=== PATIENT | female | born 2000 | race Hispanic/Latino ===

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

== ENCOUNTER 2022-11-11 19:13 | Emergency (ER) | payer OTHER ==
[2022-11-11] MEDS ORDERED: Ketorolac Tromethamine 30 MG/ML VIAL ONE (20:13)
[2022-11-11] MEDS ORDERED: Ondansetron ODT 4 MG TAB ONE (20:13)
[2022-11-11 20:28] LABS: SARS-CoV-2 NAA Rapid Test Not Detected (NotDetected)
== END 2022-11-11 20:40 | disposition home or self-care (01) ==
LOC: ERS 19:13
DX: R11.2 Nausea with vomiting, unspecified (principal); B34.9 Viral infection, unspecified; Z20.822 Contact with and (suspected) exposure to COVID-19
CPT/HCPCS: 96372; 99284; J1885; Q0162

== ENCOUNTER 2023-08-24 21:59 | Emergency (ER) | payer OTHER, SELFPAY | END 2023-08-24 23:19 | disposition home or self-care (01) | LOC: ERS 21:59 | DX: M25.532 Pain in left wrist (principal); X50.3XXA Overexertion from repetitive movements, initial encounter; Y93.89 Activity, other specified; Y92.69 Other specified industrial and construction area as the place of occurrence of the external cause; Z55.0 Illiteracy and low-level literacy ==

== ENCOUNTER 2024-04-16 23:59 | Emergency (ER) | payer SELFPAY ==
[2024-04-17 00:29] LABS: #Basophils 0.05 10x3/uL (0.0-0.2); #Eosinophils Less than 0.03 10x3/uL (0.0-0.7); %Basophils 0.4 % (0.0-1.0); %Eosinophils 0.1 % (0.0-10.0); %Lymphocytes 14.1 % (21.0-51.0); %Monocytes 3.9 % (0.0-10.0); %Neutrophils 81.1 % (42.0-75.0); Hematocrit 43.1 % (36.0-47.0); Hemoglobin 14.6 g/dL (12.0-16.0); Mean Corpuscular HGB CONC 33.9 g/dL (32.0-36.0); Mean Corpuscular Hemoglobin 31.2 pg (27.0-31.0); Mean Corpuscular Volume 92.1 fL (78.0-98.0); Mean Platelet Volume 9.8 fL (7.4-10.4); Platelet Count 270 10x3/uL (130-400); RBC Distribution Width 12.4 % (11.5-14.5); Red Blood Cell (RBC) Count 4.68 mill/uL (4.20-5.40)
[2024-04-17 01:07] LABS: ALT (SGPT) 29 U/L (Less than 34); Albumin 4.6 g/dL (3.1-4.5); Alkaline Phosphatase 86 U/L (40-110); Anion Gap 14 mmol/L (10-20); BUN (Urea Nitrogen) 13 mg/dL (7.0-18.7); Bilirubin, Total 0.4 mg/dL (0.3-1.2); Calc. Creatinine Clearance 0 mL/min (70-130); Calcium 9.6 mg/dL (7.8-10.44); Carbon Dioxide 23 mmol/L (22-29); Chloride 105 mmol/L (98-107); Estimated GFR 131; Globulin 3.3 g/dL (2.4-3.5); Glucose 110 mg/dL (70-105); Lipase 15 U/L (8-78); Potassium 3.6 mmol/L (3.5-5.1); Protein, Total 7.9 g/dL (6.0-8.3); Sodium 138 mmol/L (136-145)
[2024-04-17 01:57] LABS: Pregnancy Test - Urine (BHCG) Negative (Negative); Pregu Control Bar Appear? YES (CONTROL BAR)
[2024-04-17 01:58] LABS: Pregu Control Background? CLEAR/WHITE (CLR/WHITE)
[2024-04-17 02:01] LABS: Specific Gravity 1.031 (1.002-1.036)
[2024-04-17 02:02] LABS: Bacteria/HPF 2+ HPF (None Seen); Bilirubin Negative (Negative); Blood, Urine 1+ (Negative); CAUTI Indications for Culture Pelvic or flank pain; Clarity Turbid (Clear); Glucose, Urine (Dipstick) Normal (Negative); Ketone, Urine 20 mg/dL (Negative); Leukocyte Negative Leu/uL (Negative); Nitrite Negative (Negative); Protein, Urine (Dipstick) 30 mg/dL (Neg-Trace); RBC/HPF 21-50 HPF (0-3); Specific Gravity, Urine 1.031 (1.002-1.036)
[2024-04-17 02:03] LABS: Urine Culture Reflex No No
[2024-04-17] MEDS ORDERED: Famotidine 20 MG TAB ONE (02:20)
[2024-04-17] MEDS ORDERED: Dicyclomine 20 MG TAB ONE (02:20)
[2024-04-17] MEDS ORDERED: Ondansetron ODT 4 MG TAB ONE (02:21)
[2024-04-17 03:47] LABS: AST (SGOT) 31 U/L (11-34)
== END 2024-04-17 03:11 | disposition home or self-care (01) ==
LOC: ERS 23:59
DX: R10.13 Epigastric pain (principal); R11.2 Nausea with vomiting, unspecified; R19.7 Diarrhea, unspecified; Z55.6 Problems related to health literacy
CPT/HCPCS: 36415; 80053; 81001; 81025; 83690; 85025; 99283; Q0162

== ENCOUNTER 2025-01-21 19:18 | Emergency (ER) | payer SELFPAY ==
[2025-01-21 20:25] LABS: CAUTI Indications for Culture Pelvic or flank pain; Glucose, Urine (Dipstick) Normal (Negative); Leukocyte Negative Leu/uL (Negative); Protein, Urine (Dipstick) 10 mg/dL (Neg-Trace); Specific Gravity, Urine 1.033 (1.002-1.036); WBC/HPF 0-3 HPF (0-3)
[2025-01-21 20:26] LABS: Bacteria/HPF Rare-Few HPF (None Seen)
[2025-01-21 20:27] LABS: Urine Culture Reflex No No
[2025-01-21] MEDS ORDERED: Ondansetron PF 4 MG/2 ML Vial ONE (21:11)
[2025-01-21 21:17] LABS: #Basophils Less than 0.03 10x3/uL (0.0-0.2); #Eosinophils Less than 0.03 10x3/uL (0.0-0.7); #Monocytes 0.44 10x3/uL (0.11-0.59); #Neutrophils 9.13 10x3/uL (1.40-6.50); %Basophils 0.2 % (0.0-1.0); %Eosinophils 0.0 % (0.0-10.0); %Lymphocytes 4.6 % (21.0-51.0); %Monocytes 4.4 % (0.0-10.0); %Neutrophils 90.6 % (42.0-75.0); Hematocrit 41.4 % (36.0-47.0); Hemoglobin 14.0 g/dL (12.0-16.0); Mean Corpuscular Hemoglobin 31.0 pg (27.0-31.0); Mean Corpuscular Volume 91.8 fL (78.0-98.0); Platelet Count 237 10x3/uL (130-400); Red Blood Cell (RBC) Count 4.51 mill/uL (4.20-5.40); White Blood Cell (WBC) Count 10.07 10x3/uL (4.8-10.8)
[2025-01-21 21:35] LABS: BHCG - Serum Negative (NEGATIVE); Pregs Control Background? CLEAR/WHITE (CLR/WHITE); Pregs Control Bar Appear? YES (CONTROL BAR)
[2025-01-21 21:44] LABS: ALT (SGPT) 24 U/L (Less than 34); AST (SGOT) 22 U/L (11-34); Albumin 4.2 g/dL (3.1-4.5); Alkaline Phosphatase 79 U/L (40-110); Anion Gap 17 mmol/L (10-20); BUN (Urea Nitrogen) 11 mg/dL (7.0-18.7); Bilirubin, Total 0.6 mg/dL (0.3-1.2); Calc. Creatinine Clearance 0 mL/min (70-130); Calcium 8.8 mg/dL (7.8-10.44); Carbon Dioxide 25 mmol/L (22-29); Chloride 105 mmol/L (98-107); Globulin 2.9 g/dL (2.4-3.5); Glucose 113 mg/dL (70-105); Lipase 17 U/L (8-78); Potassium 3.6 mmol/L (3.5-5.1); Sodium 143 mmol/L (136-145)
[2025-01-22] MEDS ORDERED: Ondansetron PF 4 MG/2 ML Vial ONE (00:26)
[2025-01-22] MEDS ORDERED: Magnesium 2 GM/50 ML BAG (IN WATER) ONE (01:27)
[2025-01-22 01:36] LABS: Magnesium 1.4 mg/dL (1.6-2.6)
[2025-01-22 01:37] LABS: Acetaminophen Less than 10 mcg/mL (Less than 10); Salicylate Less than 8.0 mg/dL (Less than 8.0)
[2025-01-22] MEDS ORDERED: Metoprolol Tartrate 5 MG (5 mL) VIAL ONE (01:57)
[2025-01-22] MEDS ORDERED: Acetaminophen 500 MG TAB ONE (02:05)
[2025-01-22] MEDS ORDERED: cefTRIAXone (ROCEPHIN) 1 GM VIAL ONE (03:24)
[2025-01-22] MEDS ORDERED: Iopamidol 370 76% 100 ML VIAL ONE (12:44)
== END 2025-01-22 04:25 | disposition home or self-care (01) ==
LOC: ERS 19:18
DX: E86.0 Dehydration (principal); R11.2 Nausea with vomiting, unspecified
CPT/HCPCS: 36415; 71045; 71275; 74176; 80053; 80307; 81001; 83605; 83690; 83735; 84443; 84703; 85025; 85379; 87040; 93005; 96361; 96365; 96366; 96367; 96375; 96376; J0696; J2270; J2405; J3475